=== PATIENT | male | born 1955 ===

== ENCOUNTER 2024-03-26 09:22 | Day surgery (SDC) | payer OTHER ==
[2024-03-18 09:36] VITALS: BP 117/64
[2024-03-18 09:50] LABS: PH,URINE 6.5 (5.0-8.0); URINE APPEARANCE Clear; URINE BILIRRUBIN Negative (NEGATIVE); URINE BLOOD Small; URINE COLOR Yellow; URINE KETONE Negative (NEGATIVE); URINE LEUKOCYTE Negative; URINE NITRATE Negative; URINE PROTEIN Negative (NEGATIVE); URINE UROBILINOGEN 0.2 E.U./dl
[2024-03-18 09:55] LABS: URINE RBC 45.3 uL (0.0-20.8)
[2024-03-18 10:10] LABS: INR 1.05; PROTHROMBIN TIME 11.4 SECONDS (9.0-11.5)
[2024-03-18 10:12] LABS: URINE BACTERIA 3.6 uL (0.0-1933); URINE EPITHELIAL CELLS 1.2 uL (0.0-38.8); URINE GLUCOSE >=1000 MG/DL (NEGATIVE); URINE WBC 1.7 uL (0.0-23.2)
[~2024-03-26] VITALS: Ht 227.3 cm; Wt 66.2 kg
[~2024-03-26 09:22] MED LIST: AMBIEN10 MG PO; B12 ACTIVE1000 MCG PO; BUMETANIDE0.5 MG PO; CARVEDILOL25 M1 PO; ENTRESTO 97 MG1 EACH PO; JARDIANCE10 MG PO; LORAZEPAM0.5 MG PO; LOVAZA1 GM PO; SPIRONOLACTONE25 MG PO; SYNTHROID150 MCG PO
[2024-03-26] MEDS ORDERED: TRAMADOL HCL50 MG PO (09:56)
[2024-03-26] MEDS ORDERED: TYLENOL ARTHRI650 MG PO (09:56)
[2024-03-26] MEDS ORDERED: MIRALAX17 GM PO (09:56)
[2024-03-26] MEDS ORDERED: KETO10TA2 PO (09:56)
[2024-03-26] MEDS ORDERED: CEFAZOLIN SODIUM 1,000 MG VIAL ONE (11:17)
[2024-03-26] MEDS ORDERED: BUPIVACAINE HCL/MPF 0.5% 30ML VIAL ONE (11:17)
[2024-03-26] MEDS ORDERED: MORPHINE SULFATE 4 MG/ML VIAL IV ONE (14:30)
== END 2024-03-26 18:50 | disposition home or self-care (01) ==
LOC: CIR.AMB 09:22
PROVIDERS: ATTEND Surgery
DX: K40.30 Unilateral inguinal hernia, with obstruction, without gangrene, not specified as recurrent (principal); I10 Essential (primary) hypertension; J45.909 Unspecified asthma, uncomplicated; F32.9 Major depressive disorder, single episode, unspecified
CPT/HCPCS: 49507; C1781